=== PATIENT | female | born 1995 | race African-American/Black ===

== ENCOUNTER 2017-02-04 03:22 | Outpatient (CLI) | payer OTHER | END 2017-02-04 03:23 | disposition critical access hospital (66) | LOC: EMS 03:22 | PROVIDERS: ATTEND Surgery | DX: F99 Mental disorder, not otherwise specified (principal) | CPT/HCPCS: A0425; A0429 ==

== ENCOUNTER 2017-02-04 03:39 | Emergency (ER) | payer OTHER ==
--- NOTE | 2017-02-04 03:56 | ED Physician Documentation ---
PD HPI ALTERED MENTAL STATUS - Stated complaint Stated Complaint: MH - Chief complaint Chief Complaint: Neuro - History obtained from History obtained from: Patient, Family, EMS - History of Present Illness Timing - onset: Today Timing - duration: Hours Timing - details: Abrupt onset, Now resolved, Waxing and waning Quality / character: Confused, Disoriented, Agitated, Hallucinating Associated symptoms: No: Fever, Headache, Stiff neck, Dyspnea, Cough, NVD, Urinary sx, General weakness, Focal weakness, Seizure activity, Syncope Contributing factors: Intoxicated. No: Known psych illness Basline status: Alert and oriented X 3, Ambulatory, Independent Similar symptoms before: Has not had sx before Recently seen: Not recently seen - Additional information Additional information: 22 y/o female was drinking with her boyfriend this evening and not a lot. She appeared intoxicated and tripped and fell over the side table and broke it but did not strike her head. She was noted to appear intoxicated and then began to have delusions and un-intelligible speech. This came and went a number of times over about 2 hours and eventually the boyfriend called 911. The patient appeared intoxicated in the field and was acting normally when medics arrived only to act bizzarely for a brief time and she was transported. The patient indicates she remembers all events of the night. Review of Systems Constitutional: denies: Fever, Chills, Myalgias Eyes: denies: Loss of vision, Decreased vision Ears: denies: Ear pain Nose: denies: Rhinorrhea / runny nose, Congestion Throat: denies: Sore throat Cardiac: denies: Chest pain / pressure, Palpitations Respiratory: denies: Dyspnea, Cough GI: denies: Abdominal Pain, Nausea, Vomiting : denies: Dysuria, Frequency Skin: denies: Rash Musculoskeletal: denies: Neck pain, Back pain, Extremity pain Neurologic: reports: Confused. denies: Generalized weakness, Focal weakness, Numbness, Headache, Head injury, LOC Psychiatric: reports: Hallucinations PD PAST MEDICAL HISTORY - Present Medications Home Medications: Ambulatory Orders Medication Instructions Recorded Confirmed No Known Home Medications [No 02/04/17 02/04/17 Known Home Medications] - Allergies Allergies/Adverse Reactions: Allergies Allergy/AdvReac Type Severity Reaction Status Date / Time No Known Drug Allergies Allergy Verified 06/18/17 03:45 PD ED PE NORMAL - Vitals Vital signs reviewed: Yes (wide pulse pressure) - General General: No acute distress, Well developed/nourished - HEENT HEENT: Atraumatic, PERRL, EOMI, Ears normal, Moist mucous membranes, Pharynx benign, Dentition benign, Other (There are 3 beats of rapid nystagmus to lateral view bilaterally ) - Neck Neck: Supple, no meningeal sign, No bony TTP - Cardiac Cardiac: RRR, No murmur - Respiratory Respiratory: No respiratory distress, Clear bilaterally - Abdomen Abdomen: Soft, Non tender - Back Back: No CVA TTP, No spinal TTP - Derm Derm: Normal color, Warm and dry, No rash - Extremities Extremities: No deformity, No edema - Neuro Neuro: Alert and oriented X 3, gold and silver assayer 2-12 intact, No motor deficit, No sensory deficit, Normal speech - Psych Psych: Normal mood, Normal affect Results - Vitals Vitals: Vital Signs - 24 hr 02/04/17 02/04/17 02/04/17 03:41 04:18 05:20 Temperature 36.5 C 36.9 C Heart Rate 81 104 H 92 Respiratory 15 29 H 18 Rate Blood Pressure 107/59 L 116/69 103/67 O2 Saturation 99 100 99 Oxygen O2 Source Room air - Labs Labs: Laboratory Tests 02/04/17 02/04/17 04:09 04:09 WBC 3.4 L RBC 4.35 Hgb 14.2 Hct 42.3 MCV 97.2 MCH 32.6 H MCHC 33.6 RDW 11.9 L Plt Count 210 MPV 7.8 L Neut # 1.0 L Lymph # 2.1 [place] # 0.2 Eos # 0.0 Baso # 0.0 Absolute Nucleated RBC 0.00 Nucleated RBCs 0.1 Sodium 144 Potassium 4.3 Chloride 110 Carbon Dioxide 21 Anion Gap 13.0 BUN 12 Creatinine 0.7 Estimated GFR (MDRD) 125 Glucose 96 Calcium 9.3 Total Bilirubin 0.3 AST 18 ALT 17 Alkaline Phosphatase 68 Total Protein 9.2 H Albumin 4.6 Globulin 4.6 H Albumin/Globulin Ratio 1.0 Lipase 25 Ethyl Alcohol 264.9 PD MEDICAL DECISION MAKING - ED course Complexity details: reviewed results, re-evaluated patient, considered differential, d/w patient, d/w family ED course: 22 y/o female drank too much too fast and is now recovering. Departure - Departure Disposition: 01 Home, Self Care Clinical Impression: Alcohol intoxication Qualifiers: Complication of substance-induced condition: uncomplicated Qualified Code(s): F10.120 - Alcohol abuse with intoxication, uncomplicated Condition: Stable Instructions: ED Alcohol Intoxication Follow-Up: PHAM Cochran [Provider Group]
[2017-02-04 04:16] LABS: BASOPHILS % (AUTO) 0.8 %; EOSINOPHILS % (AUTO) 0.4 %; HCT - HEMATOCRIT 42.3 % (37.0-47.0); HGB - HEMOGLOBIN 14.2 g/dL (12.0-16.0); LYMPHOCYTES # (AUTO) 2.1 10^3/uL (1.5-3.5); MEAN CORPUSCULAR HEMOGLOBIN 32.6 pg (27.0-31.0); MEAN CORPUSCULAR HGB CONC 33.6 g/dL (32.0-36.0); MEAN CORPUSCULAR VOLUME 97.2 fL (81.0-99.0); MEAN PLATELET VOLUME 7.8 fL (7.9-10.8); MONOCYTES # (AUTO) 0.2 10^3/uL (0.0-1.0); MONOCYTES % (AUTO) 7.2 %; NEUTROPHILS % (AUTO) 30.6 %; NUCLEATED RED BLOOD CELLS AUTO 0.1 /100WBC; RED BLOOD COUNT 4.35 10^6/uL (4.20-5.40); RED CELL DISTRIBUTION WIDTH 11.9 % (12.0-15.0); UNCORRECTED WHITE BLOOD COUNT 3.4 x10^3/uL; WHITE BLOOD COUNT 3.4 x10^3/uL (4.8-10.8)
[2017-02-04 04:29] LABS: BILIRUBIN,TOTAL 0.3 mg/dL (0.2-1.0); CALCIUM 9.3 mg/dL (8.5-10.3); CREATININE 0.7 mg/dL (0.4-1.0); POTASSIUM 4.3 mmol/L (3.5-5.0); TOTAL PROTEIN 9.2 g/dL (6.7-8.2)
[2017-02-04 05:20] VITALS: BP 103/67
== END 2017-02-04 05:39 | disposition home or self-care (01) ==
LOC: ED 03:39
DX: F10.120 Alcohol abuse with intoxication, uncomplicated (principal)
CPT/HCPCS: 36415; 80053; 80320; 83690; 85025; 99283; 99284

== ENCOUNTER 2019-04-05 22:40 | Emergency (ER) | payer OTHER ==
--- NOTE | 2019-04-06 00:25 | ED Physician Documentation ---
PD HPI BACK PAIN - Stated complaint Stated Complaint: BACK PAIN - Chief complaint Chief Complaint: Back Pain - History obtained from History obtained from: Patient - History of Present Illness Timing - onset: How many days ago (4) Timing - details: Gradual onset, Waxing and waning Pain level now: 5 Location: Mid, Lower, Other (bilateral) Quality: Pain, Spasm Associated symptoms: No: Fever, Weakness, Numbness Improves with: Rest Worsened by: Movement Similar symptoms before: Has not had sx before Recently seen: Not recently seen Review of Systems Constitutional: denies: Fever GI: denies: Abdominal Pain : denies: Dysuria, Frequency Musculoskeletal: reports: Back pain. denies: Neck pain Neurologic: denies: Focal weakness, Numbness PD PAST MEDICAL HISTORY - Past Medical History Past Medical History: Yes Psych: Anxiety Musculoskeletal: Chronic back pain - Past Surgical History Past Surgical History: No - Present Medications Home Medications: Ambulatory Orders Medication Instructions Recorded Confirmed Cyclobenzaprine [Flexeril] 10 mg PO TID PRN #20 tablet 04/06/19 Hydrocodone/Acetaminophen 1 - 2 each PO Q6HR PRN #14 tablet 04/06/19 [Hydrocodone-Acetamin 5-325 mg] - Allergies Allergies/Adverse Reactions: Allergies Allergy/AdvReac Type Severity Reaction Status Date / Time No Known Drug Allergies Allergy Verified 04/05/19 22:52 - Social History Does the pt smoke?: No Smoking Status: Never smoker Does the pt drink ETOH?: Yes Does the pt have substance abuse?: No - Immunizations Immunizations are current?: Yes - POLST Patient has POLST: No PD ED PE NORMAL - Vitals Vital signs reviewed: Yes - General General: Alert and oriented X 3, No acute distress, Well developed/nourished - Abdomen Abdomen: Soft, Non tender - Back Back: No CVA TTP, Other (mild tenderness bilateral parathoracic (lower) and paralumbar (upper)) - Derm Derm: Normal color, Warm and dry, No rash - Neuro Neuro: No motor deficit, No sensory deficit Results - Vitals Vitals: Vital Signs - 24 hr 04/05/19 04/06/19 22:50 02:24 Temperature 36.2 C L Heart Rate 80 73 Respiratory 16 16 Rate Blood Pressure 111/73 116/75 O2 Saturation 100 100 Oxygen O2 Source Room air - Rads (name of study) thoracolumbar xrays Radiology: Prelim report reviewed, See rad report PD MEDICAL DECISION MAKING - ED course Complexity details: reviewed results, re-evaluated patient, considered differential, d/w patient Departure - Departure Disposition: 01 Home, Self Care Clinical Impression: Back pain Qualifiers: Back pain location: low back pain Chronicity: acute Back pain laterality: bilateral Sciatica presence: without sciatica Qualified Code(s): M54.5 - Low back pain Condition: Stable Instructions: ED Neck Back Pain General Follow-Up: PHAM Cochran [Provider Group] Prescriptions: Hydrocodone/Acetaminophen [Hydrocodone-Acetamin 5-325 mg] 1 - 2 each PO Q6HR PRN #14 tablet PRN Reason: Pain Cyclobenzaprine [Flexeril] 10 mg PO TID PRN #20 tablet PRN Reason: Spasms Discharge Date/Time: 04/06/19 02:33
[2019-04-06] MEDS ORDERED: CYCLOBENZAPRINE 10 MG TABLET PO STA (00:48)
[2019-04-06] MEDS ORDERED: HYDROcod/ACETAM 5/325 MG TABLET PO STA (00:48)
--- NOTE | 2019-04-06 02:04 | XRAY Report ---
Reason: back pain Procedure Date: 04/06/2019 Accession Number: [id number] / [id number] Procedure: XR - ThoracoLumbar 2 View CPT Code: 53214 FULL RESULT: EXAM: LUMBOSACRAL SPINE RADIOGRAPHY EXAM DATE: 04/06/2019 01:46 AM. CLINICAL HISTORY: Back pain since Sunday. COMPARISONS: None. TECHNIQUE: 2 views. FINDINGS: Alignment: No subluxation. Bones: Five [id number] lumbar vertebral bodies are present. No fractures or bone lesions. Disks: Multilevel disk space height loss as well as endplate osteophytosis. Facets: Multilevel facet arthropathy. Sacroiliac Joints: No diastases Soft Tissues: Moderate to large amount of retained colonic fecal matter. IMPRESSION: Normal lumbar spine radiography.
[2019-04-06 02:34] VITALS: BP 116/75
== END 2019-04-06 02:33 | disposition home or self-care (01) ==
LOC: ED 22:40
DX: M54.5 Low back pain (principal)
CPT/HCPCS: 72080; 99283; 99284; A9270

== ENCOUNTER 2020-02-24 23:00 | Emergency (ER) | payer OTHER ==
[2020-02-24] MEDS ORDERED: SODIUM CHLORIDE 0.9% 1,000 ML IV STA (23:32)
[2020-02-24] MEDS ORDERED: DEXAMETHASONE 10 MG/ML VIAL IVP STA (23:32)
[2020-02-24] MEDS ORDERED: diphenhydrAMINE INJ 50 MG/ML VIAL IVP STA (23:32)
--- NOTE | 2020-02-24 23:35 | ED Physician Documentation ---
History of Present Illness - Stated complaint Stated Complaint: SOA - Chief complaint Chief Complaint: Allergic Rx - History obtained from History obtained from: Patient, EMS - History of Present Illness Timing: How many days ago (10) - Additonal information Additional information: 25-year-old female has developed some swelling in her face around her eyes and a difficulty breathing over the past 10 days first occurred 10 days ago. She states that she is taken some Benadryl for this and she has not discovered any specific allergen that causes this reaction to occur. She has had the swelling come and go [place] and she has had blood work done done and she has been prescribed a nonsedating antihistamine. The patient reports that she was in the shower tonight when she noticed the marked swelling to her face and she had some difficulty breathing she ended up calling the ambulance. She has not had recent medications other than Benadryl and the prescribed nonsedating antihistamine she has not taken today. She has not had new or different foods. She has had nasal congestion she has not had cough. Review of Systems Constitutional: denies: Fever, Chills, Myalgias Eyes: denies: Decreased vision Ears: denies: Ear pain Nose: reports: Congestion, Sinus pressure / pain Throat: denies: Sore throat Cardiac: denies: Chest pain / pressure, Palpitations Respiratory: reports: Dyspnea. denies: Cough, Wheezing GI: denies: Abdominal Pain, Nausea, Vomiting : denies: Dysuria, Frequency PD PAST MEDICAL HISTORY - Past Medical History Psych: Anxiety Musculoskeletal: Chronic back pain - Past Surgical History Past Surgical History: No - Present Medications Home Medications: Ambulatory Orders Medication Instructions Recorded Confirmed Cyclobenzaprine [Flexeril] 10 mg PO TID PRN #20 tablet 04/06/19 Hydrocodone/Acetaminophen 1 - 2 each PO Q6HR PRN #14 tablet 04/06/19 [Hydrocodone-Acetamin 5-325 mg] predniSONE [Prednisone] 40 mg PO DAILY #10 tablet 02/25/20 - Allergies Allergies/Adverse Reactions: Allergies Allergy/AdvReac Type Severity Reaction Status Date / Time No Known Drug Allergies Allergy Verified 02/24/20 23:13 - Social History Does the pt smoke?: No Smoking Status: Never smoker Does the pt drink ETOH?: Yes Does the pt have substance abuse?: No - Immunizations Immunizations are current?: Yes - POLST Patient has POLST: No PD ED PE NORMAL - Vitals Vital signs reviewed: Yes (normal ) - General General: Alert and oriented X 3, No acute distress, Well developed/nourished, Other (25 y/o female with obvious midfacial swelling/periorbital edema. ) - HEENT HEENT: Atraumatic, PERRL, EOMI, Ears normal, Moist mucous membranes, Pharynx benign, Dentition benign, Other (sinus point tenderness to the right maxillary sinus area. ) - Neck Neck: Supple, no meningeal sign, No bony TTP - Cardiac Cardiac: RRR, No murmur - Respiratory Respiratory: No respiratory distress, Clear bilaterally, Other (diminished air movement. ) - Abdomen Abdomen: Soft, Non tender - Back Back: No CVA TTP, No spinal TTP - Derm Derm: Normal color, Warm and dry, No rash - Extremities Extremities: No deformity, No edema - Neuro Neuro: Alert and oriented X 3, glove pairer 2-12 intact, No motor deficit, No sensory deficit, Normal speech Eye Opening: Spontaneous Motor: Obeys Commands Verbal: Oriented GCS Score: 15 - Psych Psych: Normal mood, Normal affect Results - Vitals Vitals: Vital Signs - 24 hr 02/24/20 02/25/20 02/25/20 23:06 00:00 00:39 Temperature 37 C Heart Rate 88 82 Respiratory 18 17 Rate Blood Pressure 97/73 109/75 O2 Saturation 99 100 02/25/20 02/25/20 02/25/20 00:47 00:55 00:56 Temperature Heart Rate 88 78 Respiratory 16 16 16 Rate Blood Pressure O2 Saturation 100 100 02/25/20 01:21 Temperature Heart Rate 84 Respiratory 16 Rate Blood Pressure 111/70 O2 Saturation 100 Oxygen O2 Source Room air - Labs Labs: Laboratory Tests 02/24/20 02/24/20 02/25/20 23:40 23:40 00:35 WBC 3.1 L RBC 4.14 L Hgb 14.1 Hct 41.2 MCV 99.5 H MCH 34.1 H MCHC 34.2 RDW 11.3 L Plt Count 240 MPV 9.0 Neut # (Auto) 0.7 L Lymph # (Auto) 2.1 [place] # (Auto) 0.2 Eos # (Auto) 0.1 Baso # (Auto) 0.0 Absolute Nucleated RBC 0.00 Nucleated RBC % 0.0 Sodium 136 Potassium 3.4 L Chloride 105 Carbon Dioxide 23 Anion Gap 8.0 BUN 7 Creatinine 0.7 Estimated GFR (MDRD) 122 Glucose 91 Calcium 9.4 Total Bilirubin 0.4 AST 18 ALT 16 Alkaline Phosphatase 60 Total Protein 8.2 Albumin 4.1 Globulin 4.1 Albumin/Globulin Ratio 1.0 Lipase 25 Urine Color YELLOW Urine Clarity CLEAR Urine pH 6.5 Ur Specific [place] <=1.005 Urine Protein NEGATIVE Urine Glucose (UA) NEGATIVE Urine Ketones NEGATIVE Urine Occult Blood NEGATIVE Urine Nitrite NEGATIVE Urine Bilirubin NEGATIVE Urine Urobilinogen 0.2 (NORMAL) Ur Leukocyte Esterase NEGATIVE Ur Microscopic Review NOT INDICATED Urine Culture Comments NOT INDICATED Urine HCG, Qual 02/25/20 00:35 WBC RBC Hgb Hct MCV MCH MCHC RDW Plt Count MPV Neut # (Auto) Lymph # (Auto) [place] # (Auto) Eos # (Auto) Baso # (Auto) Absolute Nucleated RBC Nucleated RBC % Sodium Potassium Chloride Carbon Dioxide Anion Gap BUN Creatinine Estimated GFR (MDRD) Glucose Calcium Total Bilirubin AST ALT Alkaline Phosphatase Total Protein Albumin Globulin Albumin/Globulin Ratio Lipase Urine Color Urine Clarity Urine pH Ur Specific [place] <1.005 Urine Protein Urine Glucose (UA) Urine Ketones Urine Occult Blood Urine Nitrite Urine Bilirubin Urine Urobilinogen Ur Leukocyte Esterase Ur Microscopic Review Urine Culture Comments Urine HCG, Qual NEGATIVE PD MEDICAL DECISION MAKING - ED course Complexity details: reviewed old records, reviewed results, re-evaluated patient, considered differential, d/w patient ED course: 25-year-old female with a 10-day history of intermittent facial swelling and some urticaria denies any use of Naprosyn within the past 10 days. She does have some back pain and she has tight muscles in her back she is found to be dehydrated on interrogation the inferior vena cava and she is administered saline. She is given dexamethasone 10 mg intravenously for the swelling as well as Benadryl. I will place her on a course of prednisone. Departure - Departure Disposition: 01 Home, Self Care Clinical Impression: Allergic urticaria Condition: Stable Instructions: ED Allergic Reaction General Other Follow-Up: MYESHA RICHARD MD [Primary Care Provider] - Prescriptions: predniSONE [Prednisone] 40 mg PO DAILY #10 tablet Discharge Date/Time: 02/25/20 01:28
[2020-02-24 23:56] LABS: BASOPHILS % (AUTO) 0.3 %; EOSINOPHILS # (AUTO) 0.1 10^3/uL (0.0-0.7); EOSINOPHILS % (AUTO) 1.6 %; HGB - HEMOGLOBIN 14.1 g/dL (12.0-16.0); LYMPHOCYTES # (AUTO) 2.1 10^3/uL (1.5-3.5); LYMPHOCYTES % (AUTO) 69.3 %; MEAN CORPUSCULAR HEMOGLOBIN 34.1 pg (27.0-31.0); MEAN CORPUSCULAR HGB CONC 34.2 g/dL (32.0-36.0); MEAN CORPUSCULAR VOLUME 99.5 fL (81.0-99.0); MONOCYTES # (AUTO) 0.2 10^3/uL (0.0-1.0); MONOCYTES % (AUTO) 5.8 %; NEUTROPHILS # (AUTO) 0.7 10^3/uL (1.5-6.6); NEUTROPHILS % (AUTO) 22.7 %; PLT - PLATELET COUNT 240 10^3/uL (130-450); RED BLOOD COUNT 4.14 10^6/uL (4.20-5.40); RED CELL DISTRIBUTION WIDTH 11.3 % (12.0-15.0); WHITE BLOOD COUNT 3.1 x10^3/uL (4.8-10.8)
[2020-02-25 00:05] LABS: ALBUMIN 4.1 g/dL (3.2-5.5); BILIRUBIN,TOTAL 0.4 mg/dL (0.2-1.0); CALCIUM 9.4 mg/dL (8.5-10.3); CREATININE 0.7 mg/dL (0.4-1.0); TOTAL PROTEIN 8.2 g/dL (6.7-8.2)
[2020-02-25 00:43] LABS: BILIRUBIN,URINE NEGATIVE (NEGATIVE); GLUCOSE, URINE (UA) NEGATIVE (NEGATIVE); KETONES,URINE (UA) NEGATIVE (NEGATIVE); LEUKOCYTE ESTERASE, URINE NEGATIVE (NEGATIVE); NITRITE,URINE NEGATIVE (NEGATIVE); OCCULT BLOOD,URINE NEGATIVE (NEGATIVE); PH,URINE 6.5 PH (5.0-7.5); PROTEIN,URINE NEGATIVE (NEGATIVE); UROBILINOGEN,URINE 0.2 (NORMAL) E.U./dL (NORMAL)
[2020-02-25 00:46] LABS: CLARITY,URINE CLEAR (CLEAR); HCG UR QUAL NEGATIVE
[2020-02-25 01:24] VITALS: BP 111/70
--- NOTE | 2020-02-25 08:10 | CT Report ---
PROCEDURE: Sinuses INDICATIONS: facial swelling maxillary sinus tenderness TECHNIQUE: Noncontrast 3.0 mm axial images acquired from the frontal sinuses to the mid-sella, with coronal and sagittal reformats. For radiation dose reduction, the following was used: automated exposure control , adjustment of mA and/or kV according to patient size. COMPARISON: None. FINDINGS: Image quality: Excellent. Maxillary Sinuses: No bony remodeling or destruction. Sinuses are clear. Ethmoid Air Cells: No bony remodeling or destruction. Sinuses are clear. Sphenoid Sinuses: No bony remodeling or destruction. Sinuses are clear. Frontal Sinuses: No bony remodeling or destruction. Sinuses are clear. Ostiomeatal Complexes: Ostiomeatal complexes are patent. No Stacy cells. Miscellaneous: Visualized intra-orbital contents are normal. No mary bullosa. No nasal septal de viation. IMPRESSION: Clear paranasal sinuses. No significant discrepancy with the preliminary report. Reviewed by: Lindy Rodríguez MD on 02/25/2020 8:09 AM PDT Approved by: Lindy Rodríguez MD on 02/25/2020 8:09 AM PDT Station ID: [id number]
== END 2020-02-25 01:28 | disposition home or self-care (01) ==
LOC: EDUNIT# → ED 23:00
DX: L50.0 Allergic urticaria (principal)
CPT/HCPCS: 36415; 70486; 80053; 81003; 81025; 83690; 85025; 96374; 99284; J1200; 81001; 87086

== ENCOUNTER 2020-02-24 23:37 | Outpatient (CLI) | payer OTHER | END 2020-02-24 23:59 | disposition critical access hospital (66) | LOC: EMS 23:37 | PROVIDERS: ATTEND Surgery | DX: R06.02 Shortness of breath (principal) | CPT/HCPCS: A0425; A0429 ==

== ENCOUNTER 2020-08-10 18:57 | Emergency (ER) | payer OTHER ==
[2020-08-10 19:09] VITALS: BP 111/77
[2020-08-10 19:25] LABS: BILIRUBIN,URINE NEGATIVE (NEGATIVE); GLUCOSE, URINE (UA) NEGATIVE (NEGATIVE); KETONES,URINE (UA) NEGATIVE (NEGATIVE); LEUKOCYTE ESTERASE, URINE NEGATIVE (NEGATIVE); NITRITE,URINE NEGATIVE (NEGATIVE); OCCULT BLOOD,URINE LARGE (NEGATIVE); PROTEIN,URINE NEGATIVE (NEGATIVE); UROBILINOGEN,URINE 0.2 (NORMAL) E.U./dL (NORMAL)
[2020-08-10 19:28] LABS: CLARITY,URINE CLEAR (CLEAR)
[2020-08-10 19:37] LABS: RBC,URINE 0-5 /HPF (0-5); SQUAMOUS EPITHELIAL CELL,UR RARE Squamous (<= Few)
[2020-08-10 19:38] LABS: BACTERIA,URINE Rare /HPF (None Seen)
[2020-08-10 20:30] LABS: BASOPHILS % (AUTO) 0.4 %; EOSINOPHILS # (AUTO) 0.1 10^3/uL (0.0-0.7); EOSINOPHILS % (AUTO) 1.1 %; HGB - HEMOGLOBIN 12.7 g/dL (12.0-16.0); LYMPHOCYTES # (AUTO) 1.7 10^3/uL (1.5-3.5); LYMPHOCYTES % (AUTO) 37.2 %; MEAN CORPUSCULAR HEMOGLOBIN 33.4 pg (27.0-31.0); MEAN CORPUSCULAR HGB CONC 32.2 g/dL (32.0-36.0); MEAN CORPUSCULAR VOLUME 103.7 fL (81.0-99.0); MEAN PLATELET VOLUME 9.5 fL (7.9-10.8); MONOCYTES # (AUTO) 0.4 10^3/uL (0.0-1.0); MONOCYTES % (AUTO) 8.9 %; NEUTROPHILS # (AUTO) 2.4 10^3/uL (1.5-6.6); NEUTROPHILS % (AUTO) 52.2 %; PLT - PLATELET COUNT 211 10^3/uL (130-450); RED CELL DISTRIBUTION WIDTH 11.9 % (12.0-15.0); WHITE BLOOD COUNT 4.6 x10^3/uL (4.8-10.8)
--- NOTE | 2020-08-10 21:08 | ED Physician Documentation ---
History of Present Illness - Stated complaint Stated Complaint: RECTAL BLEEDING - Chief complaint Chief Complaint: General - History obtained from History obtained from: Patient - Additonal information Additional information: Pt comes to the ED with chief complaints of hemorrhoidal bleeding, rectal pain, vaginal bleeding, dysuria, and perianal lesions. Pt states it all started 3 days ago, when pt noticed blood after a BM, and felt a soft, bulging area around her anus. She has had hemorrhoids before, and states this felt the same, but more painful. She tried Tucks pads and Preparation H, with no relief. Pt states she then developed painful "bumps" in her perianal area, which constantly cause her a lot of pain. She states any position is painful. She has not noticed the lesions in her vaginal area or around the urethral meatus. Today, pt states, 2 weeks after her last period, which was normal, she began having period-like vaginal bleeding, and has noticed dysuria today. No fevers or chills. No known STD exposure. No history of perianal/genital lesions before. Pt states her periods are pretty regular, and that the last one seemed normal. Review of Systems Ten Systems: 10 systems reviewed and negative Constitutional: reports: Reviewed and negative Eyes: reports: Reviewed and negative Ears: reports: Reviewed and negative Nose: reports: Reviewed and negative Throat: reports: Reviewed and negative Cardiac: reports: Reviewed and negative Respiratory: reports: Reviewed and negative GI: reports: Reviewed and negative : reports: Dysuria, Vaginal bleeding Skin: reports: Lesions, Reviewed and negative Musculoskeletal: reports: Reviewed and negative Neurologic: reports: Reviewed and negative Psychiatric: reports: Reviewed and negative Endocrine: reports: Reviewed and negative Immunocompromised: reports: Reviewed and negative PD PAST MEDICAL HISTORY - Past Medical History Psych: Anxiety Musculoskeletal: Chronic back pain - Past Surgical History Past Surgical History: No - Present Medications Home Medications: Ambulatory Orders Medication Instructions Recorded Confirmed HYDROcod/ACETAM 5/325 [[place] 5/325] 1 - 2 ea PO Q6H PRN #15 tablet 08/10/20 Hydrocortisone [Anusol-Hc] 30 gm RC DAILY PRN #5 cream..g. 08/10/20 - Allergies Allergies/Adverse Reactions: Allergies Allergy/AdvReac Type Severity Reaction Status Date / Time No Known Drug Allergies Allergy Verified 08/10/20 19:45 - Social History Does the pt smoke?: No Smoking Status: Never smoker Does the pt drink ETOH?: Yes Does the pt have substance abuse?: No - Immunizations Immunizations are current?: Yes - POLST Patient has POLST: No PD ED PE NORMAL - Vitals Vital signs reviewed: Yes - General General: Alert and oriented X 3, No acute distress, Well developed/nourished - HEENT HEENT: Atraumatic, PERRL, Ears normal, Moist mucous membranes - Neck Neck: Supple, no meningeal sign - Cardiac Cardiac: RRR, No murmur - Respiratory Respiratory: No respiratory distress, Clear bilaterally - Abdomen Abdomen: Soft, Non tender, Non distended - Female Female : Other (No lesions at vaginal introitus. Moderate vaginal bleeding.) - Rectal Rectal: Other (Small, partially thrombosed external hemorrhoid, which is tender, but not bleeding. Multiple, small vesicles or pustules surrounding anus in a 3.5 cm radius. Outerlying ones have eroded tops. No induration or fluctuance.) - Derm Derm: Normal color, Warm and dry - Extremities Extremities: No deformity - Neuro Neuro: Alert and oriented X 3 - Psych Psych: Normal mood, Normal affect Results - Vitals Vitals: Vital Signs - 24 hr 08/10/20 19:03 Temperature 36.2 C L Heart Rate 82 Respiratory 16 Rate Blood Pressure 111/77 O2 Saturation 100 Oxygen O2 Source Room air - Labs Labs: Laboratory Tests 08/10/20 08/10/20 19:17 20:20 WBC 4.6 L RBC 3.80 L Hgb 12.7 Hct 39.4 MCV 103.7 H MCH 33.4 H MCHC 32.2 RDW 11.9 L Plt Count 211 MPV 9.5 Neut # (Auto) 2.4 Lymph # (Auto) 1.7 [place] # (Auto) 0.4 Eos # (Auto) 0.1 Baso # (Auto) 0.0 Absolute Nucleated RBC 0.00 Nucleated RBC % 0.0 Urine Color YELLOW Urine Clarity CLEAR Urine pH 6.0 Ur Specific [place] <=1.005 Urine Protein NEGATIVE Urine Glucose (UA) NEGATIVE Urine Ketones NEGATIVE Urine Occult Blood LARGE H Urine Nitrite NEGATIVE Urine Bilirubin NEGATIVE Urine Urobilinogen 0.2 (NORMAL) Ur Leukocyte Esterase NEGATIVE Urine RBC 0-5 Urine WBC 0-3 Ur Squamous Epith Cells RARE Squamous Urine Bacteria Rare Ur Microscopic Review INDICATED Urine Culture Comments NOT INDICATED PD MEDICAL DECISION MAKING - ED course Complexity details: reviewed results, re-evaluated patient, considered alice yvette, d/w patient ED course: Urinalysis was obtained, and negative. CBC was unremarkable. I have d/w pt that her lesions may be a reaction to the Tucks pads or Preparation H, or they may be secondary to herpes genitalis. I have asked the nurse to provide the correct viral culture swab, and with this, I have cultured the lesions. I have d/w pt that results should be back in the next few days. We have discussed not using any further topical medications until the lesions clear up, and have also discussed using barrier creams or ointments, such as Desitin, Bag [place], or A&D Ointment to help with sx. When the pt's lesions clear up, she may try Anusol HC for her hemorrhoid, if needed. In the meantime, I have prescribed a small amount of pain medication to help with the pt's pain. We have discussed follow- up and the usual indications for return. Departure - Departure Disposition: 01 Home, Self Care Clinical Impression: Dysfunctional uterine bleeding, Perianal rash Hemorrhoid Qualifiers: Hemorrhoid type: unspecified Qualified Code(s): K64.9 - Unspecified hemorrhoids Condition: Stable Instructions: ANUSOL-HC Suppositories, ED Bleed Irregular Vaginal, ED Hemorrhoids Prescriptions: Hydrocortisone [Anusol-Hc] 30 gm RC DAILY PRN #5 cream..g. PRN Reason: Hemorrhoids HYDROcod/ACETAM 5/325 [[place] 5/325] 1 - 2 ea PO Q6H PRN #15 tablet PRN Reason: Pain Comments: Your hemorrhoid is fairly small, and does not appear to be actively bleeding. The blood you are noticing is coming from your vaginal area. It is not uncommon for women to occasionally have some irregularity in their periods. Generally, if your periods are usually regular, this will be a short-lived and temporary thing. If you continue to have excessively frequent periods, or a sustained irregularity of your periods, then you should follow-up with your heat treater helper. As far as the rash around your bottom, it is not clear whether this is from herpes or whether it is a reaction to the Tucks pads and hemorrhoid preparation you used. At this point in time, we have obtained a swab culture of the lesions, and this should be back within the next few days. If you are positive for herpes, you will be notified and placed on an antiviral medication. As we discussed, a barrier cream or ointment may be helpful in alleviating the pain associated with the bumps. This can be in the form of A&E ointment, bag balm, or a diaper cream like Desitin. You can also use cornstarch. Do not use any scented powders such as baby powder. Please follow-up with your primary care physician if you are not feeling better within the next week. Forms: Activity restrictions Discharge Date/Time: 08/10/20 21:21
== END 2020-08-10 21:21 | disposition home or self-care (01) ==
LOC: ED 18:57
DX: N93.8 Other specified abnormal uterine and vaginal bleeding (principal); K64.5 Perianal venous thrombosis; K62.9 Disease of anus and rectum, unspecified; R30.0 Dysuria
CPT/HCPCS: 36415; 81001; 81003; 85025; 87086; 87529; 99283; 99284

== ENCOUNTER 2021-05-20 07:49 | Outpatient (CLI) | payer OTHER | END 2021-05-20 07:50 | disposition home or self-care (01) | LOC: DI 07:49 | PROVIDERS: ATTEND Family Medicine | DX: R00.0 Tachycardia, unspecified (principal); R06.02 Shortness of breath | CPT/HCPCS: 93306 ==

== ENCOUNTER 2021-06-26 04:18 | Emergency (ER) | payer OTHER ==
[2021-06-26] MEDS ORDERED: KETOROLAC 30 MG/ML VIAL IM STA (05:08)
--- NOTE | 2021-06-26 05:11 | ED Physician Documentation ---
History of Present Illness - Stated complaint Stated Complaint: L WRIST INJURY - Chief complaint Chief Complaint: Trauma Ext - History obtained from History obtained from: Patient - Additonal information Additional information: 18-year-old woman, without prior wrist injury presents with left wrist pain sudden onset when she was lifting a 4 pound cat litter about an hour prior to arrival and thinks that she twisted her wrist only. Pain is constant, moderate severity, localized to the ulnar aspect of the dorsum of the wrist, without any associated swelling. Worse with range of motion of the wrist. Denies numbness. Review of Systems Musculoskeletal: reports: Joint pain PD PAST MEDICAL HISTORY - Past Medical History Past Medical History: Yes Psych: Anxiety Musculoskeletal: Chronic back pain Other Past Medical History: Lupus - Past Surgical History Past Surgical History: No - Present Medications Home Medications: Ambulatory Orders Medication Instructions Recorded Confirmed Belimumab [Benlysta] 200 mg IM 06/26/21 Etonogestrel [Nexplanon] 06/26/21 Hydroxychloroquine [Plaquenil] 200 mg PO DAILY 06/26/21 06/26/21 Tacrolimus/Hyaluronate/Niacin 1 applic TOP DAILY 06/26/21 06/26/21 [Oxianujo 4%-0.1% Cream] azaTHIOprine [Imuran] 50 mg PO BID 06/26/21 06/26/21 - Allergies Allergies/Adverse Reactions: Allergies Allergy/AdvReac Type Severity Reaction Status Date / Time No Known Drug Allergies Allergy Verified 06/26/21 04:28 - Social History Does the pt smoke?: No Smoking Status: Never smoker Does the pt drink ETOH?: Yes Does the pt have substance abuse?: No - Immunizations Immunizations are current?: Yes - POLST Patient has POLST: No PD ED PE NORMAL - Vitals Vital signs reviewed: Yes - General General: Alert and oriented X 3, No acute distress, Well developed/nourished - HEENT HEENT: Atraumatic, PERRL, EOMI - Derm Derm: Normal color, Warm and dry - Extremities Extremities: No deformity, Other (Left wrist discomfort with range of motion. Full range of motion. 2+ bilateral radial pulses. Normal capillary refill and sensation and strength) Results - Vitals Vitals: Vital Signs - 24 hr 06/26/21 04:20 Temperature 36.0 C L Heart Rate 95 Respiratory 14 Rate Blood Pressure 137/83 H O2 Saturation 100 Oxygen O2 Source Room air PD MEDICAL DECISION MAKING - ED course ED course: 26-year-old woman presents with apparent wrist strain. No fracture obvious on x-ray. Splint applied. Conservative measures discussed. Recommend ibuprofen and outpatient follow-up in 1 week if she does not have improvement. Return precautions given. Departure - Departure Disposition: 01 Home, Self Care Clinical Impression: Left wrist sprain Condition: Good Instructions: ED Sprain Wrist Comments: You are seen in the emergency department for left wrist sprain. Your x-rays did not show any break in the bone. You should take ibuprofen 600 mg every 6 hours as needed for pain. Try to apply ice for 20 minutes every hour and use your wrist splint for comfort. You can start to do gentle range of motion exercises after 24 hours as tolerated. Please follow-up for repeat x-rays in 1 week if you do not have improvement. Return to the emergency department if you have any new or worsening symptoms or other concerns.
[2021-06-26] MEDS ORDERED: KETOROLAC 30 MG/ML VIAL ONE (05:22)
[2021-06-26 05:50] VITALS: BP 127/84
--- NOTE | 2021-06-26 07:49 | XRAY Report ---
PROCEDURE: Wrist 3 View LT INDICATIONS: injury L wrist, lifting a box TECHNIQUE: 4 views of the wrist were acquired. COMPARISON: None FINDINGS: Bones: No fractures or dislocations. No suspicious bony lesions. Scaphoid view: No scaphoid fractures are seen. Soft tissues: No suspicious soft tissue calcifications. IMPRESSION: Normal plain films Note: No significant discrepancy from the preliminary report. Reviewed by: Harley Nelson MD on 06/26/2021 6:48 AM [facility] Approved by: Harley Nelson MD on 06/26/2021 6:48 AM [facility] Station ID: [id number]
== END 2021-06-26 05:50 | disposition home or self-care (01) ==
LOC: ED 04:18
DX: S63.502A Unspecified sprain of left wrist, initial encounter (principal); X50.0XXA Overexertion from strenuous movement or load, initial encounter; Y93.89 Activity, other specified
CPT/HCPCS: 96372; 99282; 99283

== ENCOUNTER 2021-08-15 08:00 | Outpatient (CLI) | payer OTHER | END 2021-08-15 23:59 | LOC: LAB.N 08:00 | PROVIDERS: ATTEND Physician Assistant Medical | DX: R51.9 Headache, unspecified (principal); R43.8 Other disturbances of smell and taste; Z20.822 Contact with and (suspected) exposure to COVID-19 ==

== ENCOUNTER 2021-08-16 22:08 | Emergency (ER) | payer OTHER ==
[2021-08-16] MEDS ORDERED: KETOROLAC 30 MG/ML VIAL IM STA (23:29)
[2021-08-17 00:48] LABS: B. PARAPERTUSSIS- RESP PCR PAN NOT DETECTED; CORONAVIRUS 229E-RESP PCR NOT DETECTED; CORONAVIRUS HKU1-RESP PCR NOT DETECTED; CORONAVIRUS NL63-RESP PCR NOT DETECTED; CORONAVIRUS OC43-RESP PCR NOT DETECTED; HUMAN METAPNEUMOVIRUS NOT DETECTED; INFLUENZA A- RESP PCR PANEL NOT DETECTED; INFLUENZA B - RESP PCR PANEL NOT DETECTED; PARAINFLUENZA VIRUS 1 NOT DETECTED; PARAINFLUENZA VIRUS 2 NOT DETECTED; PARAINFLUENZA VIRUS 3 NOT DETECTED; PARAINFLUENZA VIRUS 4 NOT DETECTED; RHINOVIRUS/ENTEROVIRUS NOT DETECTED; RSV- RESP PCR PANEL NOT DETECTED; SARS-CoV-2 -RESP PCR PANEL NOT DETECTED
[2021-08-17 00:49] LABS: B. PERTUSSIS- RESP PCR PANEL NOT DETECTED; C. PNEUMONIAE- RESP PCR PANEL NOT DETECTED; M. PNEUMONIAE- RESP PCR PANEL NOT DETECTED
[2021-08-17] MEDS ORDERED: ONDANSETRON ODT 4 MG TABLET TL STA (01:13)
--- NOTE | 2021-08-17 01:14 | ED Physician Documentation ---
History of Present Illness - Stated complaint Stated Complaint: THROAT PX/SOA/HEAD PX - Chief complaint Chief Complaint: General - History obtained from History obtained from: Patient - Additonal information Additional information: 26yF with pmh SLE, chronic back pain, anxiety p/w sore throat and congestion X 1 week and diarrhea, headache, SOA, nausea and vomiting intermittent over past couple days. also with loss of taste/smell. covid vaccinated. no known exposures. Review of Systems Ten Systems: 10 systems reviewed and negative Constitutional: reports: Chills, Myalgias, Fatigue Nose: reports: Rhinorrhea / runny nose, Congestion Cardiac: denies: Chest pain / pressure Respiratory: reports: Dyspnea, Cough PD PAST MEDICAL HISTORY - Past Medical History Past Medical History: Yes Psych: Anxiety Musculoskeletal: Chronic back pain - Past Surgical History Past Surgical History: No - Present Medications Home Medications: Ambulatory Orders Medication Instructions Recorded Confirmed Belimumab [Benlysta] 200 mg IM 06/26/21 Etonogestrel [Nexplanon] 06/26/21 Hydroxychloroquine [Plaquenil] 200 mg PO DAILY 06/26/21 06/26/21 Tacrolimus/Hyaluronate/Niacin 1 applic TOP DAILY 06/26/21 06/26/21 [Oxianujo 4%-0.1% Cream] azaTHIOprine [Imuran] 50 mg PO BID 06/26/21 06/26/21 Ondansetron Odt [Zofran Odt] 4 mg TL Q6H PRN #10 tablet 08/17/21 - Allergies Allergies/Adverse Reactions: Allergies Allergy/AdvReac Type Severity Reaction Status Date / Time No Known Drug Allergies Allergy Verified 08/16/21 22:11 - Social History Does the pt smoke?: No Smoking Status: Never smoker Does the pt drink ETOH?: Yes Does the pt have substance abuse?: No - Immunizations Immunizations are current?: Yes - POLST Patient has POLST: No PD ED PE NORMAL - Vitals Vital signs reviewed: Yes - General General: Alert and oriented X 3, No acute distress, Well developed/nourished - HEENT HEENT: Atraumatic, PERRL, EOMI - Neck Neck: Supple, no meningeal sign - Cardiac Cardiac: RRR - Respiratory Respiratory: No respiratory distress, Clear bilaterally - Abdomen Abdomen: Non tender, Non distended - Derm Derm: Normal color, Warm and dry - Extremities Extremities: No deformity - Neuro Neuro: Alert and oriented X 3, No motor deficit, No sensory deficit - Psych Psych: Normal mood, Normal affect Results - Vitals Vitals: Vital Signs - 24 hr 08/16/21 22:11 Temperature 36.7 C Heart Rate 100 Respiratory 16 Rate Blood Pressure 129/79 O2 Saturation 100 Oxygen O2 Source Room air - Labs Labs: Laboratory Tests 08/16/21 22:35 Nasal Adenovirus (PCR) NOT DETECTED Nasal B. parapertussis DNA (PCR) NOT DETECTED Nasal Coronavir 229E PCR NOT DETECTED Nasal Coronavir HKU1 PCR NOT DETECTED Nasal Coronavir NL63 PCR NOT DETECTED Nasal Coronavir OC43 PCR NOT DETECTED Nasal Enterovir/Rhinovir PCR NOT DETECTED Nasal Influenza B PCR NOT DETECTED Nasal Influenza A PCR NOT DETECTED Nasal Parainfluen 1 PCR NOT DETECTED Nasal Parainfluen 2 PCR NOT DETECTED Nasal Parainfluen 3 PCR NOT DETECTED Nasal Parainfluen 4 PCR NOT DETECTED Nasal RSV (PCR) NOT DETECTED Nasal B.pertussis DNA PCR NOT DETECTED Nasal C.pneumoniae (PCR) NOT DETECTED Franck Human Metapneumo PCR NOT DETECTED Nasal M.pneumoniae (PCR) NOT DETECTED Nasal SARS-CoV-2 (PCR) NOT DETECTED PD MEDICAL DECISION MAKING - ED course ED course: 26yF p/w acute viral syndrome. RVP negative. patient well appearing with normal vitals and exam. symptomatic care discussed. return precautions given. plan to f/u with [employer]. Departure - Departure Disposition: 01 Home, Self Care Clinical Impression: Viral upper respiratory infection, Diarrhea, Vomiting, Congestion of upper airway Condition: Good Instructions: ED Viral Syndrome Prescriptions: Ondansetron Odt [Zofran Odt] 4 mg TL Q6H PRN #10 tablet PRN Reason: Nausea / Vomiting Comments: You were seen in the emergency department for a viral syndrome. Your COVID test was negative but we often see false negatives early in the course of disease so you may consider getting re-tested if you or your primary doctor have a high suspicion of covid. You can take zofran as needed for nausea. Please stay well hydrated, get lots of rest, and stay home until your symptoms improve. Return to the ED if you have new or worsening symptoms or other concerns. Forms: Activity restrictions
[2021-08-17 01:33] VITALS: BP 128/78
== END 2021-08-17 01:43 | disposition home or self-care (01) ==
LOC: ED 22:08
DX: J06.9 Acute upper respiratory infection, unspecified (principal); R19.7 Diarrhea, unspecified; R11.10 Vomiting, unspecified; Z20.822 Contact with and (suspected) exposure to COVID-19
CPT/HCPCS: 0202U; 93005; 96372; 99283; 99284; Q0162

== ENCOUNTER 2021-10-27 18:17 | Outpatient (CLI) | payer OTHER ==
[2021-10-27 21:17] LABS: THYROID STIMULATING HORMONE 3.2 uIU/mL (0.34-5.60)
== END 2021-10-27 18:18 | disposition home or self-care (01) ==
LOC: LAB.N 18:17
PROVIDERS: ATTEND Internal Medicine Cardiovascular Disease
DX: R00.2 Palpitations (principal)
CPT/HCPCS: 36415; 84443

== ENCOUNTER 2021-12-23 00:01 | Emergency (ER) | payer OTHER ==
[2021-12-23] MEDS ORDERED: KETOROLAC 60 MG/2 ML VIAL IM STA (00:22)
[2021-12-23] MEDS ORDERED: ONDANSETRON ODT 4 MG TABLET TL STA (00:22)
--- NOTE | 2021-12-23 00:25 | ED Physician Documentation ---
History of Present Illness - Stated complaint Stated Complaint: HEAD/STOMACH PX - Chief complaint Chief Complaint: General - History obtained from History obtained from: Patient - Additonal information Additional information: Patient comes emergency department chief complaint of headache, nausea, diarrhea, and a sense of shortness of breath for the last several days. Patient denies any fevers or chills. She states that she is tried taking her migraine medication and it does not seem to help. The patient denies any vomiting. No chest pain or cough. No sore throat or can digestion. The patient has not had any exposures to anyone who has been ill that she knows of. No other complaints at this time. Review of Systems Ten Systems: 10 systems reviewed and negative Constitutional: reports: Reviewed and negative Eyes: reports: Reviewed and negative Ears: reports: Reviewed and negative Nose: reports: Reviewed and negative Throat: reports: Reviewed and negative Cardiac: reports: Reviewed and negative Respiratory: reports: Dyspnea GI: reports: Nausea, Diarrhea. denies: Vomiting : reports: Reviewed and negative Skin: reports: Reviewed and negative. denies: Rash Musculoskeletal: reports: Reviewed and negative Neurologic: reports: Headache Psychiatric: reports: Reviewed and negative Endocrine: reports: Reviewed and negative Immunocompromised: reports: Reviewed and negative PD PAST MEDICAL HISTORY - Past Medical History Past Medical History: Yes Neuro: Migraines Psych: Anxiety Musculoskeletal: Chronic back pain - Past Surgical History Past Surgical History: No - Present Medications Home Medications: Ambulatory Orders Medication Instructions Recorded Confirmed Belimumab [Benlysta] 200 mg IM 06/26/21 Etonogestrel [Nexplanon] 06/26/21 Hydroxychloroquine [Plaquenil] 200 mg PO DAILY 06/26/21 12/23/21 Tacrolimus/Hyaluronate/Niacin 1 applic TOP DAILY 06/26/21 12/23/21 [Oxianujo 4%-0.1% Cream] azaTHIOprine [Imuran] 50 mg PO BID 06/26/21 12/23/21 Ondansetron Odt [Zofran Odt] 4 mg TL Q6H PRN #10 tablet 08/17/21 12/23/21 Amitriptyline HCl 75 mg PO 12/23/21 Cyclobenzaprine [Flexeril] 10 mg PO PRN PRN 12/23/21 12/23/21 Metoprolol Tartrate [Lopressor] 50 mg PO PRN PRN 12/23/21 12/23/21 Ondansetron Odt [Zofran] 4 mg TL Q6H PRN #10 tablet 12/23/21 Sumatriptan Succinate [Imitrex] 50 mg PO PRN PRN 12/23/21 12/23/21 - Allergies Allergies/Adverse Reactions: Allergies Allergy/AdvReac Type Severity Reaction Status Date / Time No Known Drug Allergies Allergy Verified 12/23/21 00:16 - Social History Does the pt smoke?: No Smoking Status: Never smoker Does the pt drink ETOH?: Yes Does the pt have substance abuse?: No - Immunizations Immunizations are current?: Yes - POLST Patient has POLST: No PD ED PE NORMAL - Vitals Vital signs reviewed: Yes - General General: Alert and oriented X 3, No acute distress, Well developed/nourished, Other (Well-appearing) - HEENT HEENT: Atraumatic, PERRL, EOMI, Moist mucous membranes - Neck Neck: Supple, no meningeal sign - Cardiac Cardiac: RRR, No murmur, Strong equal pulses - Respiratory Respiratory: No respiratory distress, Clear bilaterally - Abdomen Abdomen: Soft, Non tender, Non distended - Derm Derm: Normal color, Warm and dry, No rash - Extremities Extremities: No deformity - Neuro Neuro: Alert and oriented X 3, nursing specialist 2-12 intact, Normal speech, Other (Grossly intact) - Psych Psych: Normal mood, Normal affect Results - Vitals Vitals: Vital Signs - 24 hr 12/23/21 00:04 Temperature 36.8 C Heart Rate 93 Respiratory 18 Rate Blood Pressure 123/71 O2 Saturation 100 Oxygen O2 Source Room air PD MEDICAL DECISION MAKING - ED course Complexity details: considered differential, d/w patient ED course: The patient was very well-appearing in the emergency department and I did not find evidence of an emergent condition. I have performed a respiratory PCR swab on the patient and this is pending at this time. She has been treated symptomatically with Toradol and Zofran here in the emergency department. I have encouraged her to drink plenty of fluids. I will write her a work note for tomorrow, and the patient may follow-up in [facility] medical. I suspect a viral illness, which I explained to the patient should be expected to pass on its own. We have discussed the usual indications for follow-up and return. Departure - Departure Disposition: 01 Home, Self Care Clinical Impression: Viral syndrome Headache Qualifiers: Headache type: tension-type Headache chronicity pattern: acute headache Intractability: not intractable Qualified Code(s): G44.209 - Tension-type headache, unspecified, not intractable Condition: Stable Instructions: ED Headache Tension, ED Viral Syndrome Prescriptions: Ondansetron Odt [Zofran] 4 mg TL Q6H PRN #10 tablet PRN Reason: Nausea / Vomiting Comments: Your symptoms are most consistent with a viral illness. As such, your body should be expected to fight this off on its own in the next several days to a week. Please be sure to drink plenty of fluids and get plenty of rest. You may take ibuprofen and/or Tylenol to help with your headache. A prescription for Zofran has been sent to the pharmacy of your choice, which you stated to be [facility] in [place]. Please follow-up with your primary care physician if you are not feeling better in the next week. Forms: Activity restrictions
--- OUTSIDE RECORDS SUMMARY | 2021-12-23 00:30 | EXTERNAL MEDICAL SUMMARY RPT | Continuity of Care Document ---
:1995 Author Organization [facility] Address [address] [place] [address] Phone Care Team Providers Name Role Phone Tom Unavailable Unavailable Allergies No information. Encounters No information. Medications No information. Problems date description facility [id number] Palpitations [facility] [id number] Chest pain, unspecified [facility] l [id number] Contact with and (suspected) exposure t o [facility] [place] [address] Procedures date description facility [id number] General Physician [facility] Results No information. Vital Signs date measurement value source [id number] temperature_standard 97.8 F [id number] temperature_metric 36.56 C [id number] height_standard 1140 in [id number] height_metric 2895.6 cm
[2021-12-23 00:47] VITALS: BP 113/64
[2021-12-23 01:37] LABS: B. PARAPERTUSSIS- RESP PCR PAN NOT DETECTED; B. PERTUSSIS- RESP PCR PANEL NOT DETECTED; C. PNEUMONIAE- RESP PCR PANEL NOT DETECTED; CORONAVIRUS 229E-RESP PCR NOT DETECTED; CORONAVIRUS HKU1-RESP PCR NOT DETECTED; CORONAVIRUS NL63-RESP PCR NOT DETECTED; CORONAVIRUS OC43-RESP PCR NOT DETECTED; HUMAN METAPNEUMOVIRUS NOT DETECTED; INFLUENZA A- RESP PCR PANEL NOT DETECTED; INFLUENZA B - RESP PCR PANEL NOT DETECTED; M. PNEUMONIAE- RESP PCR PANEL NOT DETECTED; PARAINFLUENZA VIRUS 1 NOT DETECTED; PARAINFLUENZA VIRUS 2 NOT DETECTED; PARAINFLUENZA VIRUS 3 NOT DETECTED; PARAINFLUENZA VIRUS 4 NOT DETECTED; RHINOVIRUS/ENTEROVIRUS NOT DETECTED; RSV- RESP PCR PANEL NOT DETECTED; SARS-CoV-2 -RESP PCR PANEL NOT DETECTED
== END 2021-12-23 00:46 | disposition home or self-care (01) ==
LOC: ED 00:01
DX: B34.9 Viral infection, unspecified (principal); G44.209 Tension-type headache, unspecified, not intractable; Z20.822 Contact with and (suspected) exposure to COVID-19
CPT/HCPCS: 87633; 96372; 99282; 99283; Q0162

== ENCOUNTER 2021-12-24 12:48 | Outpatient (CLI) | payer OTHER ==
[2021-12-24] MEDS ORDERED: ALBUTEROL 1 PUFF INH STA (14:41)
== END 2021-12-24 12:49 | disposition home or self-care (01) ==
LOC: RT 12:48
PROVIDERS: ATTEND Family Medicine
DX: R00.0 Tachycardia, unspecified (principal); R06.00 Dyspnea, unspecified; M32.9 Systemic lupus erythematosus, unspecified
CPT/HCPCS: 94060; 94729

== ENCOUNTER 2022-05-22 08:30 | Outpatient (CLI) | payer OTHER ==
[2022-05-22 12:34] LABS: BASOPHILS % (AUTO) 0.3 %; EOSINOPHILS % (AUTO) 0.8 %; HCT - HEMATOCRIT 40.2 % (37.0-47.0); HGB - HEMOGLOBIN 13.7 g/dL (12.0-16.0); LYMPHOCYTES % (AUTO) 50.8 %; MEAN CORPUSCULAR HEMOGLOBIN 35.2 pg (27.0-31.0); MEAN CORPUSCULAR HGB CONC 34.1 g/dL (32.0-36.0); MEAN CORPUSCULAR VOLUME 103.3 fL (81.0-99.0); MEAN PLATELET VOLUME 9.5 fL (7.9-10.8); MONOCYTES # (AUTO) 0.4 10^3/uL (0.0-1.0); MONOCYTES % (AUTO) 9.1 %; NEUTROPHILS # (AUTO) 1.5 10^3/uL (1.5-6.6); PLT - PLATELET COUNT 221 10^3/uL (130-450); RED BLOOD COUNT 3.89 10^6/uL (4.20-5.40); RED CELL DISTRIBUTION WIDTH 11.9 % (12.0-15.0); WHITE BLOOD COUNT 3.9 x10^3/uL (4.8-10.8)
[2022-05-22 12:56] LABS: ALBUMIN 4.4 g/dL (3.2-5.5); ALBUMIN/GLOBULIN RATIO 1.4 (1.0-2.2); BILIRUBIN,TOTAL 0.7 mg/dL (0.2-1.0); CALCIUM 9.6 mg/dL (8.5-10.3); CREATININE 0.9 mg/dL (0.4-1.0); POTASSIUM 3.9 mmol/L (3.5-5.0); TOTAL PROTEIN 7.6 g/dL (6.7-8.2)
== END 2022-05-22 08:31 | disposition home or self-care (01) ==
LOC: LAB.N 08:30
PROVIDERS: ATTEND Family Medicine
DX: R10.9 Unspecified abdominal pain (principal); R11.2 Nausea with vomiting, unspecified; R19.7 Diarrhea, unspecified
CPT/HCPCS: 36415; 80053; 85025

== ENCOUNTER 2022-06-25 11:01 | Outpatient (CLI) | payer OTHER | END 2022-06-25 11:02 | disposition critical access hospital (66) | LOC: EMS 11:01 | DX: R07.9 Chest pain, unspecified (principal); R05.9 Cough, unspecified; R07.81 Pleurodynia; R50.9 Fever, unspecified; R51.9 Headache, unspecified; R42 Dizziness and giddiness | CPT/HCPCS: A0425; A0427 ==

== ENCOUNTER 2022-06-25 11:22 | Emergency (ER) | payer OTHER ==
[2022-06-25] MEDS ORDERED: SODIUM CHLORIDE 0.9% 1,000 ML IV STA (12:13)
[2022-06-25] MEDS ORDERED: KETOROLAC 15 MG/ML VIAL IVP STA (12:13)
--- NOTE | 2022-06-25 12:14 | ED Physician Documentation ---
History of Present Illness - Stated complaint Stated Complaint: FEVER/HEADACHE/DIZZINESS - Chief complaint Chief Complaint: Fever - History obtained from History obtained from: Patient - Additonal information Additional information: 27-year-old with history of lupus on mycophenolate and hydroxychloroquine developed sore throat and cough yesterday and today developed fevers and a headache. No associated neck stiffness. No known sick contacts but she did fly to [facility] last week and back yesterday. 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 : None HEENT: None Psych: Anxiety Musculoskeletal: None Derm: Other Other Past Medical History: lupus - Past Surgical History Past Surgical History: No - Present Medications Home Medications: Ambulatory Orders Medication Instructions Recorded Confirmed Amitriptyline HCl 75 mg PO DAILY 06/25/22 06/25/22 Clobetasol 0.05% Oint [Temovate 1 applic TOP DAILY PRN 06/25/22 06/25/22 0.05% Oint] Cyclobenzaprine [Flexeril] 10 mg PO TID PRN 06/25/22 06/25/22 Fluticasone/Salmeterol [Advair Hfa 1 puffs IH BID 06/25/22 06/25/22 230-21 Mcg Inhaler] Gabapentin [Neurontin] 600 - 900 mg PO HS PRN 06/25/22 06/25/22 HYDROcod/ACETAM 5/325 [[place] 5/325] 1 - 2 tab PO Q6H PRN #15 tablet 06/25/22 HYDROcod/ACETAM 5/325 [[place] 5/325] 1 tablet PO Q6H PRN 06/25/22 06/25/22 Hydroxychloroquine [Plaquenil] 400 mg PO DAILY 06/25/22 06/25/22 Ketoconazole [Nizoral A-D] 1 applic TP DAILY 06/25/22 06/25/22 Loratadine [Allergy Relief] 10 mg PO DAILY 06/25/22 06/25/22 Metoprolol Tartrate [Lopressor] 25 mg PO DAILY PRN 06/25/22 06/25/22 Ondansetron Odt [Zofran Odt] 4 mg TL Q6H PRN 06/25/22 06/25/22 Pnv No.95/Ferrous Fum/Folic AC 1 each PO DAILY 06/25/22 06/25/22 [ Tablet] Propranolol HCl 20 mg PO DAILY PRN 06/25/22 06/25/22 Tacrolimus/Hyaluronate/Niacin 1 applic TOP BID 06/25/22 06/25/22 [Oxianujo 4%-0.1% Cream] hydrOXYzine HCL [Hydroxyzine HCl] 25 mg PO PRN PRN 06/25/22 06/25/22 mycophenolate mofetiL [Cellcept] 0 mg PO BID 06/25/22 06/25/22 - Allergies Allergies/Adverse Reactions: Allergies Allergy/AdvReac Type Severity Reaction Status Date / Time No Known Drug Allergies Allergy Verified 06/25/22 11:39 - Social History Does the pt smoke?: No Smoking Status: Never smoker Does the pt drink ETOH?: No Does the pt have substance abuse?: No - Immunizations Immunizations are current?: Yes PD ED PE NORMAL - Vitals Vital signs reviewed: Yes - General General: Alert and oriented X 3, No acute distress - HEENT HEENT: PERRL, EOMI, Other (2 styes one on the upper and lower lid of the right eye which she is seeing an pastry wrapper for.) - Neck Neck: Supple, no meningeal sign, No bony TTP - Cardiac Cardiac: RRR, No murmur - Respiratory Respiratory: No respiratory distress, Clear bilaterally - Abdomen Abdomen: Non tender, Non distended - Back Back: No CVA TTP, No spinal TTP - Derm Derm: Normal color, Warm and dry, No rash - Neuro Neuro: Alert and oriented X 3, Normal speech - Psych Psych: Normal mood, Normal affect Results - Vitals Vitals: Vital Signs - 24 hr 06/25/22 06/25/22 06/25/22 11:40 11:55 14:00 Temperature 37.8 C Heart Rate 114 H 112 H 102 H Respiratory 16 16 18 Rate Blood Pressure 133/63 H 123/66 121/73 O2 Saturation 100 100 99 Oxygen O2 Source Room air - Labs Labs: Laboratory Tests 06/25/22 12:38 Nasal Adenovirus (PCR) NOT DETECTED Nasal B. parapertussis DNA (PCR) NOT DETECTED Nasal Coronavir 229E PCR NOT DETECTED Nasal Coronavir HKU1 PCR NOT DETECTED Nasal Coronavir NL63 PCR NOT DETECTED Nasal Coronavir OC43 PCR NOT DETECTED Nasal Enterovir/Rhinovir PCR NOT DETECTED Nasal Influenza B PCR NOT DETECTED Nasal Influenza A PCR NOT DETECTED Nasal Parainfluen 1 PCR NOT DETECTED Nasal Parainfluen 2 PCR NOT DETECTED Nasal Parainfluen 3 PCR NOT DETECTED Nasal Parainfluen 4 PCR NOT DETECTED Nasal RSV (PCR) NOT DETECTED Nasal B.pertussis DNA PCR NOT DETECTED Nasal C.pneumoniae (PCR) NOT DETECTED Franck Human Metapneumo PCR NOT DETECTED Nasal M.pneumoniae (PCR) NOT DETECTED Nasal SARS-CoV-2 (PCR) DETECTED A PD MEDICAL DECISION MAKING - ED course ED course: 27-year-old woman who has developed symptomatic COVID and given her underlying immunocompromise status seems reasonable to treat with antivirals. She was feeling better after IV fluids and Toradol. Departure - Departure Disposition: 01 Home, Self Care Clinical Impression: COVID-19 Condition: Good Record reviewed to determine appropriate education?: Yes Instructions: ED Viral Syndrome Prescriptions: HYDROcod/ACETAM 5/325 [[place] 5/325] 1 - 2 tab PO Q6H PRN #15 tablet PRN Reason: Pain Comments: You were found today to have symptomatic COVID-19. I have given you a course of antiviral known as pack Slo-Bid. You need to quarantine, staying at home and away from people until least 5 days have passed, ideally also you would test negative for COVID using a home test prior to getting back to normal function. You can take Tylenol and/or ibuprofen as needed for pain. I am also prescribing something stronger for pain which I sent to [facility] in [place]. Forms: Activity restrictions Discharge Date/Time: 06/25/22 14:01
[2022-06-25 13:38] LABS: CORONAVIRUS 229E-RESP PCR NOT DETECTED; CORONAVIRUS HKU1-RESP PCR NOT DETECTED; CORONAVIRUS NL63-RESP PCR NOT DETECTED; CORONAVIRUS OC43-RESP PCR NOT DETECTED
[2022-06-25 13:39] LABS: B. PARAPERTUSSIS- RESP PCR PAN NOT DETECTED; B. PERTUSSIS- RESP PCR PANEL NOT DETECTED; C. PNEUMONIAE- RESP PCR PANEL NOT DETECTED; HUMAN METAPNEUMOVIRUS NOT DETECTED; INFLUENZA A- RESP PCR PANEL NOT DETECTED; INFLUENZA B - RESP PCR PANEL NOT DETECTED; M. PNEUMONIAE- RESP PCR PANEL NOT DETECTED; PARAINFLUENZA VIRUS 1 NOT DETECTED; PARAINFLUENZA VIRUS 2 NOT DETECTED; PARAINFLUENZA VIRUS 3 NOT DETECTED; PARAINFLUENZA VIRUS 4 NOT DETECTED; RHINOVIRUS/ENTEROVIRUS NOT DETECTED; RSV- RESP PCR PANEL NOT DETECTED; SARS-CoV-2 -RESP PCR PANEL DETECTED
[2022-06-25] MEDS ORDERED: NIRMATRELVIR/RITONAVIR PREPACK PO STA (13:47)
[2022-06-25 14:01] VITALS: BP 121/73
== END 2022-06-25 14:01 | disposition home or self-care (01) ==
LOC: MERGE 11:22 → ED 11:22
DX: U07.1 COVID-19 (principal)
CPT/HCPCS: 87633; 96374; 99282; 99283; J3490

== ENCOUNTER 2022-07-01 09:40 | Outpatient (CLI) | payer OTHER | END 2022-07-01 23:59 | disposition critical access hospital (66) | LOC: EMS 09:40 | DX: R55 Syncope and collapse (principal); U07.1 COVID-19 | CPT/HCPCS: A0425; A0429 ==

== ENCOUNTER 2022-07-01 09:56 | Emergency (ER) | payer OTHER ==
--- NOTE | 2022-07-01 10:06 | ED Physician Documentation ---
PD HPI SYNCOPE - Stated complaint Stated Complaint: NEAR SYNCOPAL/C+ - History obtained from History obtained from: Patient - Additional information Additional information: 27-year-old woman with history of lupus on hydroxychloroquine and mycophenolate with recent diagnosis of COVID on June 25 and seen here for same. She was at [facility] today to fill her prescription that she got here, due to a backup at the pharmacy she had not been able to go yet. She was standing in line for about 5 minutes and was feeling dizzy the whole time and then had a syncopal episode without injury. States that she has not been eating or drinking well due to a combination of her COVID symptoms and nausea. She denies chest pain or trouble breathing. There was no injury. No possibility of . Review of Systems Ten Systems: 10 systems reviewed and negative Constitutional: reports: Chills, Myalgias, Fatigue Cardiac: denies: Chest pain / pressure, Palpitations Respiratory: reports: Cough. 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 HEENT: None Psych: Anxiety Musculoskeletal: None, Chronic back pain Derm: Other - Past Surgical History Past Surgical History: No - Present Medications Home Medications: Ambulatory Orders Medication Instructions Recorded Confirmed Belimumab [Benlysta] 200 mg IM 06/26/21 Etonogestrel [Nexplanon] 06/26/21 Hydroxychloroquine [Plaquenil] 200 mg PO DAILY 06/26/21 12/23/21 Tacrolimus/Hyaluronate/Niacin 1 applic TOP DAILY 06/26/21 12/23/21 [Oxianujo 4%-0.1% Cream] azaTHIOprine [Imuran] 50 mg PO BID 06/26/21 12/23/21 Ondansetron Odt [Zofran Odt] 4 mg TL Q6H PRN #10 tablet 08/17/21 12/23/21 Amitriptyline HCl 75 mg PO 12/23/21 Cyclobenzaprine [Flexeril] 10 mg PO PRN PRN 12/23/21 12/23/21 Metoprolol Tartrate [Lopressor] 50 mg PO PRN PRN 12/23/21 12/23/21 Ondansetron Odt [Zofran] 4 mg TL Q6H PRN #10 tablet 12/23/21 Sumatriptan Succinate [Imitrex] 50 mg PO PRN PRN 12/23/21 12/23/21 Amitriptyline HCl 75 mg PO DAILY 06/25/22 06/25/22 Clobetasol 0.05% Oint [Temovate 1 applic TOP DAILY PRN 06/25/22 06/25/22 0.05% Oint] Cyclobenzaprine [Flexeril] 10 mg PO TID PRN 06/25/22 06/25/22 Fluticasone/Salmeterol [Advair Hfa 1 puffs IH BID 06/25/22 06/25/22 230-21 Mcg Inhaler] Gabapentin [Neurontin] 600 - 900 mg PO HS PRN 06/25/22 06/25/22 HYDROcod/ACETAM 5/325 [[place] 5/325] 1 - 2 tab PO Q6H PRN #15 tablet 06/25/22 HYDROcod/ACETAM 5/325 [[place] 5/325] 1 tablet PO Q6H PRN 06/25/22 06/25/22 Hydroxychloroquine [Plaquenil] 400 mg PO DAILY 06/25/22 06/25/22 Ketoconazole [Nizoral A-D] 1 applic TP DAILY 06/25/22 06/25/22 Loratadine [Allergy Relief] 10 mg PO DAILY 06/25/22 06/25/22 Metoprolol Tartrate [Lopressor] 25 mg PO DAILY PRN 06/25/22 06/25/22 Ondansetron Odt [Zofran Odt] 4 mg TL Q6H PRN 06/25/22 06/25/22 Pnv No.95/Ferrous Fum/Folic AC 1 each PO DAILY 06/25/22 06/25/22 [ Tablet] Propranolol HCl 20 mg PO DAILY PRN 06/25/22 06/25/22 Tacrolimus/Hyaluronate/Niacin 1 applic TOP BID 06/25/22 06/25/22 [Oxianujo 4%-0.1% Cream] hydrOXYzine HCL [Hydroxyzine HCl] 25 mg PO PRN PRN 06/25/22 06/25/22 mycophenolate mofetiL [Cellcept] 0 mg PO BID 06/25/22 06/25/22 Ondansetron Odt [Zofran] 4 mg TL Q6H PRN #10 tablet 07/01/22 - Allergies Allergies/Adverse Reactions: Allergies Allergy/AdvReac Type Severity Reaction Status Date / Time No Known Drug Allergies Allergy Verified 06/26/22 09:55 - Social History Does the pt smoke?: No Smoking Status: Never smoker Does the pt drink ETOH?: No Does the pt have substance abuse?: No - Immunizations Immunizations are current?: Yes - POLST Patient has POLST: No PD ED PE NORMAL - Vitals Vital signs reviewed: Yes - General General: Alert and oriented X 3, No acute distress - HEENT HEENT: PERRL, EOMI, Other (Large styes right Lower greater than upper lid) - Neck Neck: Supple, no meningeal sign, No bony TTP - Cardiac Cardiac: No murmur, Other (Mild resting tachycardia) - Respiratory Respiratory: No respiratory distress, Clear bilaterally - Abdomen Abdomen: Normal bowel sounds, Soft, Non tender - Back Back: No CVA TTP, No spinal TTP - Derm Derm: Normal color, Warm and dry - Extremities Extremities: No edema, No calf tenderness / cord - Neuro Neuro: Alert and oriented X 3, Normal speech Results - Vitals Vitals: Vital Signs - 24 hr 07/01/22 07/01/22 07/01/22 10:13 10:47 11:17 Temperature 37.2 C Heart Rate 79 78 80 Respiratory 20 15 20 Rate Blood Pressure 102/70 107/64 101/65 O2 Saturation 99 100 100 07/01/22 07/01/22 07/01/22 11:30 11:34 12:00 Temperature 36.6 C Heart Rate 78 83 84 Respiratory 19 17 23 Rate Blood Pressure 102/54 L 102/54 L 115/79 O2 Saturation 99 100 100 07/01/22 07/01/22 12:30 12:47 Temperature Heart Rate 79 85 Respiratory 22 18 Rate Blood Pressure 105/69 105/69 O2 Saturation 100 99 Oxygen O2 Source Room air - EKG (time done) 1014 Rate: Rate (enter#) (81) Rhythm: NSR [place]: Normal Intervals: Normal LA. No: Prolonged QT QRS: Normal Ischemia: Normal ST segments - Labs Labs: Laboratory Tests 07/01/22 07/01/22 07/01/22 10:14 10:14 11:00 WBC 5.0 RBC 3.56 L Hgb 12.1 Hct 37.0 MCV 103.9 H MCH 34.0 H MCHC 32.7 RDW 11.2 L Plt Count 203 MPV 9.5 Neut # (Auto) 3.4 Lymph # (Auto) 1.0 L [place] # (Auto) 0.5 Eos # (Auto) 0.0 Baso # (Auto) 0.0 Absolute Nucleated RBC 0.00 Nucleated RBC % 0.0 Sodium 137 Potassium 4.1 Chloride 104 Carbon Dioxide 24 Anion Gap 9.0 BUN 7 Creatinine 1.0 Estimated GFR (MDRD) 79 L Glucose 96 Calcium 9.2 Urine Color YELLOW Urine Clarity HAZY Urine pH 6.5 Ur Specific [place] >=1.030 H Urine Protein 100 H Urine Glucose (UA) NEGATIVE Urine Ketones NEGATIVE Urine Occult Blood SMALL H Urine Nitrite NEGATIVE Urine Bilirubin NEGATIVE Urine Urobilinogen 1 (NORMAL) Ur Leukocyte Esterase NEGATIVE Urine RBC 0-5 Urine WBC 0-3 Ur Squamous Epith Cells RARE Squamous Urine Bacteria Few Ur Microscopic Review INDICATED Urine Culture Comments NOT INDICATED Urine HCG, Qual NEGATIVE PD MEDICAL DECISION MAKING - ED course ED course: 27-year-old who is still symptomatic with COVID-19 and had a syncopal episode with premonition at the pharmacy. Work-up here demonstrates normal EKG and normal labs with exception of concentrated urine and she was feeling better after IV fluids and Zofran. Departure - Departure Disposition: 01 Home, Self Care Clinical Impression: Syncope, Dehydration Condition: Good Record reviewed to determine appropriate education?: Yes Instructions: ED Dehydration, ED Fainting Unkn Cause Prescriptions: Ondansetron Odt [Zofran] 4 mg TL Q6H PRN #10 tablet PRN Reason: Nausea / Vomiting Comments: Work-up today demonstrates no concerning findings other than concentrated urine related to dehydration. You received 2 L of IV fluids here. I am also prescribing something for the nausea. Take it easy for the next couple of days as you improved from the COVID, return for new or worsening symptoms. Follow-up with your primary care physician after resolution of your viral syndrome. Discharge Date/Time: 07/01/22 12:47
[2022-07-01] MEDS ORDERED: ONDANSETRON 4 MG/2 ML VIAL IVP STA (10:07)
[2022-07-01] MEDS ORDERED: LACTATED RINGERS 1,000 ML IV ONE (10:07)
[2022-07-01] MEDS ORDERED: SODIUM CHLORIDE 0.9% 1,000 ML IV STA (10:07)
[2022-07-01 10:29] LABS: BASOPHILS % (AUTO) 0.2 %; EOSINOPHILS % (AUTO) 0.4 %; HGB - HEMOGLOBIN 12.1 g/dL (12.0-16.0); LYMPHOCYTES % (AUTO) 20.6 %; MEAN CORPUSCULAR HGB CONC 32.7 g/dL (32.0-36.0); MEAN CORPUSCULAR VOLUME 103.9 fL (81.0-99.0); MEAN PLATELET VOLUME 9.5 fL (7.9-10.8); MONOCYTES # (AUTO) 0.5 10^3/uL (0.0-1.0); NEUTROPHILS # (AUTO) 3.4 10^3/uL (1.5-6.6); NEUTROPHILS % (AUTO) 68.6 %; PLT - PLATELET COUNT 203 10^3/uL (130-450); RED BLOOD COUNT 3.56 10^6/uL (4.20-5.40); RED CELL DISTRIBUTION WIDTH 11.2 % (12.0-15.0)
[2022-07-01 10:34] LABS: CALCIUM 9.2 mg/dL (8.5-10.3); POTASSIUM 4.1 mmol/L (3.5-5.0)
[2022-07-01 11:10] LABS: BILIRUBIN,URINE NEGATIVE (NEGATIVE); GLUCOSE, URINE (UA) NEGATIVE (NEGATIVE); KETONES,URINE (UA) NEGATIVE (NEGATIVE); LEUKOCYTE ESTERASE, URINE NEGATIVE (NEGATIVE); NITRITE,URINE NEGATIVE (NEGATIVE); OCCULT BLOOD,URINE SMALL (NEGATIVE); PH,URINE 6.5 PH (5.0-7.5); PROTEIN,URINE 100 mg/dL (NEGATIVE); UROBILINOGEN,URINE 1 (NORMAL) E.U./dL (NORMAL)
[2022-07-01 11:12] LABS: CLARITY,URINE HAZY (CLEAR); HCG UR QUAL NEGATIVE
[2022-07-01 11:21] LABS: BACTERIA,URINE Few /HPF (None Seen); RBC,URINE 0-5 /HPF (0-5); SQUAMOUS EPITHELIAL CELL,UR RARE Squamous (<= Few); WBC,URINE 0-3 /HPF (0-5)
[2022-07-01 12:37] VITALS: BP 105/69
== END 2022-07-01 12:47 | disposition home or self-care (01) ==
LOC: EDUNIT# → EDBD → ED 09:56
DX: R55 Syncope and collapse (principal); E86.0 Dehydration; U07.1 COVID-19
CPT/HCPCS: 36415; 80048; 81001; 81025; 85025; 93005; 96361; 96374; 99282; 99284; J7120; 81003; 87086